=== PATIENT | female | born 1995 | race Caucasian/White ===

== ENCOUNTER 2017-09-12 18:51 | Emergency (ER) | payer OTHER ==
[~2017-09-12] VITALS: Ht 167.6 cm; Wt 83.9 kg
[~2017-09-12 18:51] MED LIST: CILOXAN 0.50 GTT/1 B OPH; VOLTAREN 5 ML5 ML OPH
[2017-09-12 19:07] VITALS: BP 132/76
[2017-09-12] MEDS ORDERED: KEFLEX500 M1 PO (19:21)
--- NOTE | 2017-09-12 19:22 | ED UPPER/LOWER EXTREMITY COMPL ---
History of Present Illness General Chief Complaint: Upper Extremity Problem Stated Complaint: PT THINKS SHE HAS INFECTION IN THE RT ARM Source: patient Exam Limitations: no limitations Vital Signs & Intake/Output Vital Signs & Intake/Output Vital Signs Date Time Temp Pulse Resp B/P B/P Pulse O2 O2 Flow FiO2 Mean Ox Delivery Rate 09/12 1917 98 Room Air 09/12 1906 98.1 70 18 132/76 98 Room Air Allergies Coded Allergies: NO KNOWN ALLERGIES (NKA) (12/17/14) Triage Note: PT FROM HOME C/O LFA INSECT BITE?? PT STATES THAT SHE NOTICED A SMALL RED DOT IN HER LFA, LAST NIGHT PT NOTICED A BULLEYES RING RADIATING 1 INCH AROUND THE BITE? PT AFEBRILE, VSS. PT DENIES SELF MEDICATING. PT STATED SHE PUT CORTIZONE CREAM ON BITE TO SEE IF IT WOULD HELP, PTS ARM IS RED SWOLLEN AND WARM TO TOUCH. Triage Nurses Notes Reviewed? yes Onset: Abrupt Duration: day(s): (2), constant, continues in ED Timing: recent history Pain/Injury Location: Left: Forearm. No Modifying Factors: none : No Patient currently breastfeeds: No HPI: 22-year-old female comes into the emergency room for further evaluation of redness to left forearm. Some associated swelling. Started off as a small bump and now redness has spread over the last 24 hours. Denies any fever chills like symptoms. Denies any other associated symptoms. (Joel Pérez) Reconcile Medications Cephalexin (Keflex) 500 MG CAPSULE 1 CAP PO TID Cellulitis Cephalexin (Keflex) 500 MG CAPSULE 1 CAP PO TID CELLULITIS (Yadira MUÑIZ,Fany) Past History Travel History Traveled to [place] past 21 day No Medical History Any Pertinent Medical History? see below for history Neurological: NONE EENT: NONE Cardiovascular: NONE Respiratory: NONE Gastrointestinal: NONE Hepatic: NONE Renal: NONE Musculoskeletal: NONE Psychiatric: NONE Endocrine: NONE Blood Disorders: NONE Cancer(s): NONE SQUAD LEADER/Reproductive: NONE Surgical History Surgical History: TOSILLECTOMY RIGHT ANKLE BONE TUMOR REMOVED Psychosocial History What is your primary language Azerbaijani Tobacco Use: Never used Family History Hx Contributory? No (Joel Pérez) Review of Systems Review of Systems Constitutional: Reports: no symptoms. EENTM: Reports: no symptoms. Respiratory: Reports: no symptoms. Cardiovascular: Reports: no symptoms. Gastrointestinal/Abdominal: Reports: no symptoms. Genitourinary: Reports: no symptoms. Musculoskeletal: Reports: no symptoms. Skin: Reports: see HPI. Neurological/Psychological: Reports: no symptoms. Hematologic/Endocrine: Reports: no symptoms. Immunological: Reports: no symptoms. All Other Systems: Reviewed and Negative (Joel Pérez) Physical Exam Physical Exam General Appearance: well developed/nourished, mild distress Head: atraumatic Eyes: Bilateral: normal appearance. Ears, Nose, Throat: normal ENT inspection, hearing grossly normal Neck: normal inspection Cardiovascular/Respiratory: no respiratory distress Back: normal inspection Elbow Left: erythematous patch left forearm, warm to touch, approximately 4-5 cm in diameter, well demarcated borders, Neurologic/Tendon: normal sensation, normal motor functions, normal tendon functions, responds to pain, no evidence tendon injury, no pulse deficit Skin: intact, normal color, warm/dry (Joel Pérez) Progress Differential Diagnosis: cellulitis, dislocation, fracture, gout, septic arthritis, sprain, tendon injury Plan of Care: 09/12/2017 11:23:02 PM Patient clinically looks well. In no apparent distress. Nontoxic appearing. No evidence of acute sepsis. Appears to be consistent with uncomplicated cellulitis. (Joel Pérez) Departure Departure Disposition: HOME OR SELF CARE Condition: Stable Clinical Impression Primary Impression: Cellulitis of left arm Referrals: Patient Has No Primary Care Dr (PCP/Family) Additional Instructions: Take Keflex as prescribed. Warm compresses. Return if any spreading of redness fever chills vomiting or flulike symptoms. Return if any other concerns worsening symptoms. Please go over all results of today's visit with your primary care doctor. Contact your primary care doctor to let them know you were here in the emergency room. There may be nonspecific findings which may not be related to your visit today here in the emergency room but may require further evaluation and chronic monitoring by your primary care doctor. If you had a laceration today the chance of foreign body always remains. You should follow-up with your primary care doctor for recheck in 3-5 days for a wound check. If you had an x-ray done there is a chance that a fracture could have been missed on initial read and you should follow-up with your primary care doctor for repeat x-rays if symptoms persist. If your blood pressure was elevated here in the emergency room please have rechecked by hyour primary care doctor within the next 48. If you were prescribed a narcotic here in the emergency room or any type of controlled substances you're not allowed to drive while taking this medication or operate any type of heavy machinery. Narcotics can make you feel lightheaded dizziness nausea and can cause constipation. You may need to picker tender a stool softener. Thank you for choosing [facility] emergency room. Please return to the emergency room immediately if you have any other concerns worsening of symptoms. Departure Forms: Customer Survey General Discharge Information (Joel Pérez) Departure Prescriptions: Current Visit Scripts Cephalexin (Keflex) 1 CAP PO TID #21 CAP Cephalexin (Keflex) 1 CAP PO TID #21 CAP PA/LEVEL VIAL INSIDE GRINDER Co-Sign Statement Statement: ED Attending supervision documentation- [] I saw and evaluated the patient. I have also reviewed all the pertinent lab results and diagnostic results. I agree with the findings and the plan of care as documented in the PA's/LEVEL VIAL INSIDE GRINDER's documentation. [X] I have reviewed the ED Record and agree with the PA's/LEVEL VIAL INSIDE GRINDER's documentation. [] Additions or exceptions (if any) to the PAs/LEVEL VIAL INSIDE GRINDER's note and plan are summarized below: [] (Yadira MUÑIZ,Fany)
[2017-09-13] MEDS ORDERED: KEFLEX500 M1 PO (14:06)
== END 2017-09-12 19:24 ==
LOC: ERH 18:51
DX: L03.114 Cellulitis of left upper limb (principal)